=== PATIENT | male | born 1985 | race Two or more races ===

== ENCOUNTER 2023-12-07 14:04 | Inpatient (IN) | payer SELFPAY ==
[2023-12-07] VITALS (49 sets, daily range): BP systolic 123–200; BP diastolic 63–130; PULSE 58–119; TEMP 36.4–36.9; O2SAT 97–100; BMI 28.3; BMI 28.7
--- NOTE | 2023-12-07 14:14 | ECG_ITS ---
The [facility] Test Date: 2023-12-07 Pat Name: ERWIN HENDRIX Department: Room: - Gender: Male Mental Health Program Specialist: : 1985 Requested By: [id number] Order Number: [id number] Reading MD: PHOEBE MARIO Measurements Intervals [place] Rate: 59 P: -18 NE: 140 QRS: 83 QRSD: 88 T: 35 QT: 406 QTc: 406 Interpretive Statements 1100 Sinus rhythm 54608 Cannot rule out inferior myocardial infarction with posterior extension, age undetermined 9150 abnormal ECG No previous ECG available for comparison Electronically Signed On 12-07-2023 22:23:46 EDT by PHOEBE MARIO
--- NOTE | 2023-12-07 14:15 | CT_ITS ---
The [address] [address] Patient Name: ERWIN HENDRIX MRN: [id number] date: 1985 Sex: M Assigned Patient Location: ER Current Patient Location: ER Accession/Order Number: [id number] Exam Date: 12/07/2023 14:40 Report Date: 12/07/2023 15:11 At the request of: FRANDY THAPA Procedure: CT head/brain wo con HEAD CT WITHOUT CONTRAST: 12/07/2023 2:40 PM EDT Clinical Data: severe headache Comparison: No previous Unenhanced axial data from base to vertex. INTRA-AXIAL: No acute hemorrhage. No acute infarction is evident. EXTRA-AXIAL: No acute hemorrhage. No focal fluid collection. BRAIN VOLUME: Unremarkable for age. VENTRICLES: No hydrocephalus PARANASAL SINUSES: No air-fluid levels in the included aspects. MASTOIDS: Clear. CALVARIUM: No acute finding. EXTRACALVARIAL: No acute findings CT/CT head/brain wo con IMPRESSION: 1. No evidence of acute intracranial process on this unenhanced study as described. All CT scans at this facility use dose modulation, iterative reconstruction, and/or weight based dosing when appropriate to reduce radiation dose to as low as reasonably achievable. Electronically authenticated by: MIGUEL ANGEL LANE Date: 12/07/2023 15:11
--- NOTE | 2023-12-07 14:19 | ED_ITS ---
HPI HPI - General Adult General Chief complaint: Headache Stated complaint: NECK PAIN/ HEADACHE/ NAUSEA Time Seen by Provider: 12/07/23 14:14 Source: patient Mode of arrival: walk-in Limitations: no limitations History of Present Illness HPI narrative: The patient does not follow-up with any primary care and he have no previous medical history of any pathology as per his history, is coming to us with a headache that started this morning woke him up from sleep on the right side of the head associated with photosensitivity, he mentioned that he usually have a headache weekly he had no follow-up with anybody recently and no recent evaluation by any physician The patient also having nausea, he is denying any neck pain he is denying any chest pain He also denies any blurry vision or double vision Related Data Home Medications ?Medication ?Instructions ?Recorded ?Confirmed No Known Home Medications 12/07/23 12/07/23 Allergies Allergy/AdvReac Type Severity Reaction Status Date / Time No Known Drug Allergies Allergy Verified 12/07/23 14:09 Opioid HPI Opioid Management Most Recent Opioid Data: Last Pain Scale 4 12/07/23 15:41 12/07/23 Last ED Pain Assessment 12/07/23 15:41 Last MAR Pain Assessment 12/07/23 14:28 Review of Systems ROS Status of ROS 10 or more systems reviewed and unremark able except as noted in history and below PFSH PFSH Social History Little interest or pleasure in doing things: not at all Feeling down, depressed, or hopeless: not at all Exam Narrative Exam Narrative: Nurses notes and vital signs reviewed and patient is not hypoxic. General: Well-appearing and in no apparent distress. Skin: Warm, dry, no pallor noted. No rash. Head: Normocephalic, atraumatic. Neck: Supple, non-tender. Eye: Pupils are equal, round and EOMI. No scleral icterus. Ears, Nose, Mouth, and Throat: TM are clear, no nasal mucosal hypertrophy. Oral mucosa is moist, no posterior oropharynx erythema, uvula is mid-line Cardiovascular: Regular Rate and Rhythm without murmur, gallop or rub. Respiratory: No accessory muscle use or respiratory distress. Lungs are clear to auscultation, no wheezing, rales or rhonchi Chest Wall: no tenderness Back: No midline thoracic or lumbar vertebral tenderness. No CVA tenderness Musculoskeletal: normal ROM, no calf or popliteal tenderness, no lower extremity edema/swelling GI: Abdomen is soft, non-distended. Normal bowel sounds. No masses appreciated. No tenderness to palpation. No rebound, guarding, or rigidity noted. Neurological: A&O x4. No cranial nerve dysfunction observed. No truncal ataxia. Moves all extremities. Sensation intact. Psychiatric: Cooperative and interactive. Normal mood and affect. Constitutional Vital Signs, click to edit/add: Last Vital Signs Temp 98.4 F 12/07/23 14:09 Pulse 66 12/07/23 15:40 Resp 20 12/07/23 15:40 BP 185/102 H 12/07/23 15:40 Pulse Ox 100 12/07/23 15:40 O2 Del Method Room Air 12/07/23 15:40 Course Vital Signs Vital signs: Vital Signs Temperature 98.4 F 12/07/23 14:09 Pulse Rate 62 12/07/23 14:09 Respiratory Rate 18 12/07/23 14:09 Blood Pressure 200/120 H 12/07/23 14:09 Pulse Oximetry 100 12/07/23 14:09 Oxygen Delivery Method Room Air 12/07/23 14:09 Temperature 98.4 F 12/07/23 14:09 Pulse Rate 66 12/07/23 15:40 Respiratory Rate 20 12/07/23 15:40 Blood Pressure 185/102 H 12/07/23 15:40 Pulse Oximetry 100 12/07/23 15:40 Oxygen Delivery Method Room Air 12/07/23 15:40 Medical Decision Making [facility] Narrative Medical decision making narrative: The patient EKG showing sinus rhythm with a heart rate of 59 there is early representation but there is no ST elevation or depression significant for any acute coronary syndrome CT head showed no acute pathology Patient initially treated with Toradol Compazine and hydralazine to control his blood pressure The patient pain responded to medication in addition to his blood pressure responded to hydralazine Right now the patient chemistry showing elevated troponin of 118 the patient denies any chest pain at any time CT angio head and neck ordered----normal result The patient case was discussed with and he agreed to admit the patient for further evaluation Lab Data Labs: Lab Results 12/07/23 Range/Units 14:20 WBC 11.8 H (4.0-11.0) 10^3/uL RBC 5.21 (4.70-6.10) 10^6/uL Hgb 16.7 (14.0-18.0) g/dL Hct 48.8 (42.0-54.0) % MCV 93.7 (80.0-94.0) fL MCH 32.1 (25.9-34.0) pg MCHC 34.2 (29.9-35.2) g/dL RDW 13.0 (11.0-15.0) % Plt Count 361 (150-450) 10^3/uL MPV 8.5 L (9.5-13.5) fL Neut % (Auto) 67.7 (43.0-75.0) % Lymph % (Auto) 22.2 (20.5-60.0) % [place] % (Auto) 8.1 (1.7-12.0) % Eos % (Auto) 1.1 (0.9-7.0) % Baso % (Auto) 0.5 (0.2-2.0) % Neut # (Auto) 8.0 H (1.4-6.5) 10^3/uL Lymph # (Auto) 2.6 (1.2-3.8) 10^3/uL [place] # (Auto) 1.0 H (0.3-0.8) 10^3/uL Eos # (Auto) 0.1 (0.0-0.7) 10^3/uL Baso # (Auto) 0.1 (0.0-0.1) 10^3/uL Abs Immat Gran (auto) 0.05 H (0.00-0.03) 10^3/uL Imm/Tot Granulo (auto) 0.4 (0.0-0.5) % Sodium 141 (136-145) mmol/L Potassium 3.5 (3.5-5.1) mmol/L Chloride 104 (98-107) mmol/L Carbon Dioxide 26.0 (21.0-32.0) mmol/L Anion Gap 14.5 BUN 14.0 (7.0-18.0) mg/dL Creatinine 1.03 (0.70-1.30) mg/dL Est GFR ( Amer) >60 (>=60 mL/min/1.73m^2) Est GFR (Non-Af Amer) >60 (>=60 mL/min/1.73m^2) BUN/Creatinine Ratio 13.6 Glucose 97 (74-106) mg/dL Calcium 9.0 (8.5-10.1) mg/dL Total Bilirubin 0.5 (0.2-1.0) mg/dL AST 18 (15-37) U/L ALT 28 (16-63) U/L Alkaline Phosphatase 108 (46-116) U/L Troponin I High Sens 118.5 H* (4.0-76.1) pg/mL Total Protein 7.0 (6.4-8.2) g/dL Albumin 3.2 L (3.4-5.0) g/dL Globulin 3.8 g/dL Albumin/Globulin Ratio 0.8 Ethanol Quant <3 mg/dL Discharge Plan Discharge Chief Complaint: Headache Clinical Impression: Hypertensive emergency, Elevated troponin, Migraine Time of Disposition Decision: 15:37 Prescriptions / Home Meds: No Action No Known Home Medications Print Language: O[place]i Referrals: Physician,Non-Staff, MD [Primary Care Provider] - 1 week
[2023-12-07] MEDS: KETOROLAC TROMETHAMINE 30 MG/ML VIAL 15 MG IVP (14:28)
[2023-12-07 14:30] LABS: Basophils Absolute Auto 0.1 10^3/uL (0.0-0.1); Basophils Percent Auto 0.5 % (0.2-2.0); Eosinophils Absolute Auto 0.1 10^3/uL (0.0-0.7); Eosinophils Percent Auto 1.1 % (0.9-7.0); Hematocrit 48.8 % (42.0-54.0); Hemoglobin 16.7 g/dL (14.0-18.0); Immature Granulocytes Abs Auto 0.05 10^3/uL (0.00-0.03); Immature Granulocytes Pct Auto 0.4 % (0.0-0.5); Lymphocytes Absolute Auto 2.6 10^3/uL (1.2-3.8); Lymphocytes Percent Auto 22.2 % (20.5-60.0); Mean Corpuscular HGB Conc 34.2 g/dL (29.9-35.2); Mean Corpuscular Hemoglobin 32.1 pg (25.9-34.0); Mean Corpuscular Volume 93.7 fL (80.0-94.0); Mean Platelet Volume 8.5 fL (9.5-13.5); Monocytes Percent Auto 8.1 % (1.7-12.0); Neutrophils Percent Auto 67.7 % (43.0-75.0); Platelet Count 361 10^3/uL (150-450); Red Blood Count 5.21 10^6/uL (4.70-6.10); White Blood Count 11.8 10^3/uL (4.0-11.0)
[2023-12-07] MEDS: PROCHLORPERAZINE 10 MG/2 ML VIAL IV (14:30)
[2023-12-07] MEDS: HYDRALAZINE HCL 20 MG/ML VIAL 5 MG IVP (14:31)
[2023-12-07 14:47] LABS: Alanine Aminotransferase 28 U/L (16-63); Albumin Globulin Ratio 0.8; Albumin Level 3.2 g/dL (3.4-5.0); Alkaline Phosphatase 108 U/L (46-116); Anion Gap 14.5; Aspartate Amino Transferase 18 U/L (15-37); BUN Creatinine Ratio 13.6; Bilirubin Total 0.5 mg/dL (0.2-1.0); Chloride 104 mmol/L (98-107); Estimated GFR (African America >60 (>=60 mL/min/1.73m^2); Estimated GFR (Non-African Ame >60 (>=60 mL/min/1.73m^2); Globulin 3.8 g/dL; Glucose 97 mg/dL (74-106); Potassium 3.5 mmol/L (3.5-5.1); Sodium 141 mmol/L (136-145)
[2023-12-07 14:51] LABS: Ethanol <3 mg/dL; Troponin I High Sensitivity 118.5 pg/mL (4.0-76.1)
--- NOTE | 2023-12-07 14:52 | CT_ITS ---
The [address] [address] Patient Name: ERWIN HENDRIX MRN: [id number] date: 1985 Sex: M Assigned Patient Location: ER Current Patient Location: Accession/Order Number: [id number] Exam Date: 12/07/2023 15:00 Report Date: 12/07/2023 15:38 At the request of: FRANDY THAPA Procedure: CT angio head EXAM: CT angio head, CT angio neck HISTORY: headache with HTN emergency COMPARISON: Noncontrast CT head performed the same day and reported separately. TECHNIQUE: Postcontrast CTA imaging of the head and neck was performed with coronal and sagittal reformats. Maximum intensity projection and 3-D reformats were performed on a separate workstation. NASCET criteria was utilized. This CT exam was performed using one or more of the following dose reduction techniques: Automated exposure control, adjustment of the MA and/or kV according to patient size, or use of iterative reconstruction technique. FINDINGS: Aortic arch: Imaged portion shows no evidence of aneurysm. No significant stenosis of the major origins of the major arch vessels. Right carotid system: No evidence of significant (50% or greater) stenosis or occlusion. Left carotid system: No evidence of significant (50% or greater) stenosis or occlusion. Vertebral arteries: Codominant. No evidence of significant (50% or greater) stenosis or occlusion. Anterior circulation: No evidence of aneurysm, significant stenosis, or occlusion. Vertebrobasilar system: No evidence of aneurysm, significant stenosis, or occlusion. Venous sinuses: Grossly patent. Additional findings: Visualized portion of the lungs are clear. No abnormal intracranial enhancement. CT/CT angio head IMPRESSION: No significant stenosis, large vessel occlusion or aneurysm involving the neck or intracranial arterial vasculature. Electronically authenticated by: DEXTER LAO Date: 12/07/2023 15:38
--- NOTE | 2023-12-07 14:52 | CT_ITS ---
The [address] [address] Patient Name: ERWIN HENDRIX MRN: [id number] date: 1985 Sex: M Assigned Patient Location: ER Current Patient Location: Accession/Order Number: [id number] Exam Date: 12/07/2023 15:00 Report Date: 12/07/2023 15:38 At the request of: FRANDY THAPA Procedure: CT angio neck EXAM: CT angio head, CT angio neck HISTORY: headache with HTN emergency COMPARISON: Noncontrast CT head performed the same day and reported separately. TECHNIQUE: Postcontrast CTA imaging of the head and neck was performed with coronal and sagittal reformats. Maximum intensity projection and 3-D reformats were performed on a separate workstation. NASCET criteria was utilized. This CT exam was performed using one or more of the following dose reduction techniques: Automated exposure control, adjustment of the MA and/or kV according to patient size, or use of iterative reconstruction technique. FINDINGS: Aortic arch: Imaged portion shows no evidence of aneurysm. No significant stenosis of the major origins of the major arch vessels. Right carotid system: No evidence of significant (50% or greater) stenosis or occlusion. Left carotid system: No evidence of significant (50% or greater) stenosis or occlusion. Vertebral arteries: Codominant. No evidence of significant (50% or greater) stenosis or occlusion. Anterior circulation: No evidence of aneurysm, significant stenosis, or occlusion. Vertebrobasilar system: No evidence of aneurysm, significant stenosis, or occlusion. Venous sinuses: Grossly patent. Additional findings: Visualized portion of the lungs are clear. No abnormal intracranial enhancement. CT/CT angio neck IMPRESSION: No significant stenosis, large vessel occlusion or aneurysm involving the neck or intracranial arterial vasculature. Electronically authenticated by: DEXTER LAO Date: 12/07/2023 15:38
[2023-12-07 16:48] LABS: Troponin I High Sensitivity 120.4 pg/mL (4.0-76.1)
--- NOTE | 2023-12-07 17:42 | P.HP_ITS ---
HPI H&P: HPI History of Present Illness Chief complaint: Hypertension Emergency, Elevated Troponin Narrative: 38 y o male with no sig PMHX was in his usual state of health when he woke up early in the morning with severe right temporal PERRY. When his PERRY persisted and did not improve, he came to ED for further evaluation. Patient's BP was 200/120 upon arrival that improved a little with IV hydralazine. Besides PERRY, he did not have any other symptoms to offer. He denies prior hx of HTN but he also has not seen a physician for years. Patient denies CP, SOB, palpitations, weakness, numbness, changes in vision or any other neurological symptoms. His PERRY improved with IV toradol. Hospitalist team was consulted for admission for HTN emergency. Upon review of chart, it was noted that patient has mildly elevated troponin. But he denied any symptoms suggestive of ongoing cardiac ischemia. Patient denies prior hospital admission, has no hx of surgeries and is otherwise healthy and has no known medical problems. Opioid HPI Opioid Management Most Recent Pain and Opioid Data: Last Pain Scale 4 12/07/23 15:41 12/07/23 Last ED Pain Assessment 12/07/23 15:41 Last MAR Pain Assessment 12/07/23 14:28 Last ORT Total Score 0 12/07/23 17:06 12/07/23 Last ORT Risk Category Low Risk 12/07/23 17:06 12/07/23 Review of Systems ROS Status of ROS 10 or more systems reviewed and unremark able except as noted in history and below PFSH PFSH Family History (Updated 12/07/23 @ 17:11 by Lianet Adams RN) Mother Family history of hypertension Social History (Updated 12/07/23 @ 17:11 by Lianet Adams RN) Within the past year, how often did you have a drink containing alcohol: never Score interpretation: A score less than 4 is consistent with normal alcohol consumption. Smoking status: Never smoker Non-prescribed substance use: denies use Highest level of school completed/degree received: 3rd grade Little interest or pleasure in doing things: not at all Feeling down, depressed, or hopeless: not at all Meds Home Medications and Allergies Home Medications ?Medication ?Instructions ?Recorded ?Confirmed ?Type acetaminophen 325 mg tablet (Pain 650 mg PO Q6H PRN pain 12/07/23 12/07/23 History Relief (acetaminophen)) Allergies Allergy/AdvReac Type Severity Reaction Status Date / Time No Known Drug Allergies Allergy Verified 12/07/23 14:09 Exam Constitutional Vital Signs, click to edit/add: Last Vital Signs Temp 97.6 F 12/07/23 17:06 Pulse 62 12/07/23 17:06 Resp 18 12/07/23 17:06 BP 195/100 H 12/07/23 17:06 Pulse Ox 97 12/07/23 17:06 O2 Del Method Room Air 12/07/23 17:06 Documenting provider has reviewed patient's vital signs: yes Common normals: no apparent distress and oriented x3 General appearance: cooperative HENMT Common normals: normocephalic and head/scalp atraumatic Head and scalp: normocephalic and atraumatic Eye Common normals: conjunctivae normal and no scleral icterus Conjunctiva: conjunctiva(e) normal Respiratory Common normals: normal respiratory effort and clear to auscultation bilaterally Effort & inspection: able to speak in complete sentences Auscultation: clear to auscultation bilaterally Cardio Common normals: regular rate, S1 normal heart sound and S2 normal heart sound Rate: regular rate Heart sounds: S1 normal and S2 normal GI Common normals: Normal to inspection, nondistended, normoactive bowel sounds present, soft to palpation, non-tender and no hepatosplenomegaly Palpation: soft and no hepatosplenomegaly Extremity Common normals: no clubbing, cyanosis or edema Neuro Common normals: oriented x3, moves all extremities and no focal motor deficits Psych Common normals: mental status grossly normal, denies hallucinations, denies homicidal ideation and denies suicidal ideation Results Labs Labs: Short CBC 12/07/23 Range/Units 14:20 WBC 11.8 H (4.0-11.0) 10^3/uL Hgb 16.7 (14.0-18.0) g/dL Hct 48.8 (42.0-54.0) % Plt Count 361 (150-450) 10^3/uL BMP 12/07/23 14:20 Sodium 141 Potassium 3.5 Chloride 104 Carbon Dioxide 26.0 BUN 14.0 Creatinine 1.03 Glucose 97 Calcium 9.0 Liver Function 12/07/23 Range/Units 14:20 Total Bilirubin 0.5 (0.2-1.0) mg/dL AST 18 (15-37) U/L ALT 28 (16-63) U/L Alkaline Phosphatase 108 (46-116) U/L Albumin 3.2 L (3.4-5.0) g/dL Assessment and Plan Assessment and Plan (1) Sudden onset unilateral headache: Assessment and Plan: Resolved. No acute finding on CTH, CTA head and neck. Likely related to uncontrolled HTN. (2) Elevated troponin: Assessment and Plan: Likey T2 demand ischemia from accelerated HTN. No CP, SOB. Trend troponin. Started on low dose ASA. Check A1C, lipid panel for risk factors assesment. (3) Hypertensive emergency: Assessment and Plan: No known hx of HTN. Presented with BP > 200/120. Associated with headache and elevated troponin. Started on Losartan/HCTZ. IV hydralazine as needed. If remains poorly controlled persistently, will have to start on continuous IV for HTN. Gradually lower BP, goal BP is 170/100 for first 24 hours. Plan Admitted to step down. Patient needs close monitoring to ensure BP is gradually treated/lowered. Monitor on tele to ensure no sig cardiac arrhythmia develops with ischemic injury due to accelerated HTN. Neuro checks to ensure he does not develop any neurological symptoms
[2023-12-07] MEDS: LOSARTAN POTASSIUM 50 MG TABLET 100 MG PO (17:55)
[2023-12-07] MEDS: HYDROCHLOROTHIAZIDE 25 MG TABLET PO (17:55)
[2023-12-07 18:00] LABS: Amphetamine Screen Urine NEGATIVE (NEGATIVE); Barbiturates Screen Urine NEGATIVE (NEGATIVE); Benzodiazepines Screen Urine NEGATIVE (NEGATIVE); Buprenorphine Screen Urine NEGATIVE (NEGATIVE); Cannabinoid Screen Urine NEGATIVE (NEGATIVE); Cocaine Screen Urine NEGATIVE (NEGATIVE); Methadone Screen Urine NEGATIVE (NEGATIVE); Methamphetamines Screen Urine NEGATIVE (NEGATIVE); Opiate Screen Urine NEGATIVE (NEGATIVE); Oxycodone Screen Urine NEGATIVE (NEGATIVE); Phencyclidine Screen Urine NEGATIVE (NEGATIVE); Tricyclic Antidepressant Urine NEGATIVE (NEGATIVE)
[2023-12-07 18:52] LABS: Troponin I High Sensitivity 131.9 pg/mL (4.0-76.1)
[2023-12-07] MEDS: HYDRALAZINE HCL 20 MG/ML VIAL 10 MG IVP (18:58)
[2023-12-07] MEDS: ACETAMINOPHEN 325 MG TABLET 650 MG PO (19:19)
[2023-12-07] MEDS: ONDANSETRON PF 4 MG/2 ML VIAL IV (20:05)
--- NOTE | 2023-12-07 20:53 | PC.NURSE ---
Patient up to bathroom and vomiting at this time with noted increase in patients HR. Patient denies current needs.
[2023-12-07 21:47] LABS: Troponin I High Sensitivity 118.1 pg/mL (4.0-76.1)
[2023-12-07] MEDS: ASPIRIN 81 MG TAB.CHEW PO (22:53)
[2023-12-07] MEDS: ENOXAPARIN SODIUM 40 MG/0.4 ML SYRINGE SUBQ (22:53)
[2023-12-08] VITALS (9 sets, daily range): BP systolic 145; BP diastolic 96; PULSE 66–98; O2SAT 98
[2023-12-08] MEDS: ACETAMINOPHEN 325 MG TABLET 650 MG PO (04:51)
[2023-12-08 05:47] LABS: Basophils Absolute Auto 0.1 10^3/uL (0.0-0.1); Basophils Percent Auto 0.4 % (0.2-2.0); Eosinophils Absolute Auto 0.1 10^3/uL (0.0-0.7); Eosinophils Percent Auto 0.7 % (0.9-7.0); Hematocrit 49.4 % (42.0-54.0); Hemoglobin 16.9 g/dL (14.0-18.0); Immature Granulocytes Abs Auto 0.05 10^3/uL (0.00-0.03); Immature Granulocytes Pct Auto 0.4 % (0.0-0.5); Lymphocytes Absolute Auto 1.6 10^3/uL (1.2-3.8); Lymphocytes Percent Auto 13.8 % (20.5-60.0); Mean Corpuscular HGB Conc 34.2 g/dL (29.9-35.2); Mean Corpuscular Volume 93.6 fL (80.0-94.0); Mean Platelet Volume 8.7 fL (9.5-13.5); Monocytes Absolute Auto 0.7 10^3/uL (0.3-0.8); Monocytes Percent Auto 6.1 % (1.7-12.0); Neutrophils Absolute Auto 9.2 10^3/uL (1.4-6.5); Neutrophils Percent Auto 78.6 % (43.0-75.0); Platelet Count 371 10^3/uL (150-450); Red Blood Count 5.28 10^6/uL (4.70-6.10); Red Cell Distribution Width 13.2 % (11.0-15.0); White Blood Count 11.7 10^3/uL (4.0-11.0)
[2023-12-08 06:24] LABS: Cholesterol 259 mg/dL (<=200); Estimated Average Glucose 105 mg/dL; Glycohemoglobin A1C 5.3 % (4.5-6.2); HDL Cholesterol 52 mg/dL (40-60); Triglycerides 166 mg/dL (<=150); VLDL CHOLESTEROL 33.2 mg/dL
[2023-12-08 06:30] LABS: Alanine Aminotransferase 23 U/L (16-63); Albumin Globulin Ratio 0.8; Albumin Level 3.1 g/dL (3.4-5.0); Alkaline Phosphatase 102 U/L (46-116); Anion Gap 16.8; Aspartate Amino Transferase 17 U/L (15-37); BUN Creatinine Ratio 10.9; Bilirubin Total 0.5 mg/dL (0.2-1.0); Carbon Dioxide 22.4 mmol/L (21.0-32.0); Chloride 104 mmol/L (98-107); Estimated GFR (African America >60 (>=60 mL/min/1.73m^2); Estimated GFR (Non-African Ame >60 (>=60 mL/min/1.73m^2); Globulin 3.8 g/dL; Glucose 117 mg/dL (74-106); Potassium 3.2 mmol/L (3.5-5.1); Sodium 140 mmol/L (136-145); Total Protein 6.9 g/dL (6.4-8.2)
[2023-12-08] MEDS: HYDROCHLOROTHIAZIDE 25 MG TABLET PO (08:45)
[2023-12-08] MEDS: POTASSIUM CHLORIDE 10 MEQ ER TABLET 40 MEQ PO (08:45)
--- NOTE | 2023-12-08 09:32 | PM.DS1 ---
DS: Providers Provider Date of admission: 12/07/23 17:00 Primary care physician: Non-Staff PhysicianMD Admitting clinician: Shaikh Gabriel Attending physician on admission: Shaikh Gabriel Attending physician on discharge: Shaikh Gabriel Discharging clinician: Shaikh Gabriel Anticipated date of discharge: 12/08/23 DS: Diagnosis Discharge Diagnosis (1) Sudden onset unilateral headache: (2) Elevated troponin: (3) Hypertensive emergency: DS: Summary Hospital Course Hospital Course: 38 y o male with no sig PMHX was in his usual state of health when he woke up early in the morning with severe right temporal PERRY. Upon arrival, patient's BP was 200/120 that improved a little with IV hydralazine. Besides PERRY, he did not have any other symptoms to offer. Patient denied CP, SOB, palpitations, weakness, numbness, changes in vision or any other neurological symptoms. His PERRY improved with IV toradol. CTH - no acute finding. Patient was admitted to step down for HTN emergency. He was started on Oral Losartan/HCTZ with IV hydralazine as needed. Patient's blood work revealed elevated troponin that trended down. He never complained of any symptoms suggestive of active cardiac ischemia. No acute finding on EKG. No abnormal events on tele. His A1C was normal but lipid panel revealed elevated LDL, cholesterol and he was started on lipitor. Patient's blood improved during the course of admission and remained at goal. He was admitted as inpatient and was expected to require > 2 days of inpatient monitoring/treatment but recovered/improved sooner than anticipated and is medically stable for discharge. Patient does not have a PCP. We will arrange for an appointment with a PCP so that he can follow up with PCP as outpatient for HTN/HLD and routine care. Status at Discharge Functional status at discharge: independent ambulation Overall status at discharge: patient is back to baseline Time Spent with Patient Time attestation: Total time spent providing and/or coordinating discharge services: Time spent: greater than 30 minutes Exam Constitutional Vital Signs, click to edit/add: Last Vital Signs Temp 98.2 F 12/07/23 22:56 Pulse 66 12/08/23 08:00 Resp 14 12/08/23 04:30 BP 145/96 H 12/08/23 08:36 Pulse Ox 98 12/08/23 08:36 O2 Del Method Room Air 12/08/23 09:00 Documenting provider has reviewed patient's vital signs: yes Common normals: no apparent distress and oriented x3 General appearance: cooperative Respiratory Common normals: normal respiratory effort and clear to auscultation bilaterally Effort & inspection: able to speak in complete sentences Auscultation: clear to auscultation bilaterally Cardio Common normals: regular rate, S1 normal heart sound and S2 normal heart sound Rate: regular rate Heart sounds: S1 normal and S2 normal Extremity Common normals: no clubbing, cyanosis or edema Neuro Common normals: oriented x3, moves all extremities and no focal motor deficits Psych Common normals: mental status grossly normal, denies hallucinations, denies homicidal ideation and denies suicidal ideation DS: Data Data Completed and Pending Labs on day of discharge: Labs from last 24 hours 12/08/23 12/07/23 12/07/23 05:11 21:10 18:09 WBC 11.7 H RBC 5.28 Hgb 16.9 Hct 49.4 MCV 93.6 MCH 32.0 MCHC 34.2 RDW 13.2 Plt Count 371 MPV 8.7 L Neut % (Auto) 78.6 H Lymph % (Auto) 13.8 L [place] % (Auto) 6.1 Eos % (Auto) 0.7 L Baso % (Auto) 0.4 Neut # (Auto) 9.2 H Lymph # (Auto) 1.6 [place] # (Auto) 0.7 Eos # (Auto) 0.1 Baso # (Auto) 0.1 Abs Immat Gran (auto) 0.05 H Imm/Tot Granulo (auto) 0.4 Sodium 140 Potassium 3.2 L Chloride 104 Carbon Dioxide 22.4 Anion Gap 16.8 BUN 14.0 Creatinine 1.28 Est GFR ( Amer) >60 Est GFR (Non-Af Amer) >60 BUN/Creatinine Ratio 10.9 Glucose 117 H Estimat Average Glucose 105 Hemoglobin A1c 5.3 Calcium 9.0 Total Bilirubin 0.5 AST 17 ALT 23 Alkaline Phosphatase 102 Troponin I High Sens 118.1 H* 131.9 H* Total Protein 6.9 Albumin 3.1 L Globulin 3.8 Albumin/Globulin Ratio 0.8 Triglycerides 166 H Cholesterol 259 H LDL Cholesterol, Calc 174.0 VLDL Cholesterol 33.2 HDL Cholesterol 52 Cholesterol/HDL Ratio 5.0 Urine Opiates Screen Ur Buprenorphine Scrn Ur Oxycodone Screen Urine Methadone Screen Ur Barbiturates Screen U Tricyclic Antidepress Ur Phencyclidine Scrn Ur Amphetamines Screen U Methamphetamines Scrn U Benzodiazepines Scrn Urine Cocaine Screen U Cannabinoids Screen Ethanol Quant 12/07/23 12/07/23 12/07/23 16:59 15:57 14:20 WBC 11.8 H RBC 5.21 Hgb 16.7 Hct 48.8 MCV 93.7 MCH 32.1 MCHC 34.2 RDW 13.0 Plt Count 361 MPV 8.5 L Neut % (Auto) 67.7 Lymph % (Auto) 22.2 [place] % (Auto) 8.1 Eos % (Auto) 1.1 Baso % (Auto) 0.5 Neut # (Auto) 8.0 H Lymph # (Auto) 2.6 [place] # (Auto) 1.0 H Eos # (Auto) 0.1 Baso # (Auto) 0.1 Abs Immat Gran (auto) 0.05 H Imm/Tot Granulo (auto) 0.4 Sodium 141 Potassium 3.5 Chloride 104 Carbon Dioxide 26.0 Anion Gap 14.5 BUN 14.0 Creatinine 1.03 Est GFR ( Amer) >60 Est GFR (Non-Af Amer) >60 BUN/Creatinine Ratio 13.6 Glucose 97 Estimat Average Glucose Hemoglobin A1c Calcium 9.0 Total Bilirubin 0.5 AST 18 ALT 28 Alkaline Phosphatase 108 Troponin I High Sens 120.4 H* 118.5 H* Total Protein 7.0 Albumin 3.2 L Globulin 3.8 Albumin/Globulin Ratio 0.8 Triglycerides Cholesterol LDL Cholesterol, Calc VLDL Cholesterol HDL Cholesterol Cholesterol/HDL Ratio Urine Opiates Screen Negative Ur Buprenorphine Scrn Negative Ur Oxycodone Screen Negative Urine Methadone Screen Negative Ur Barbiturates Screen Negative U Tricyclic Antidepress Negative Ur Phencyclidine Scrn Negative Ur Amphetamines Screen Negative U Methamphetamines Scrn Negative U Benzodiazepines Scrn Negative Urine Cocaine Screen Negative U Cannabinoids Screen Negative Ethanol Quant <3 Discharge Plan Discharge Disposition: Home, Self-Care Discharge Medications: New losartan-hydrochlorothiazide 100-25 mg tablet 1 tab PO DAILY Qty: 30 0RF atorvastatin [Lipitor] 40 mg tablet 40 mg PO DAILY Qty: 30 0RF Continued acetaminophen [Pain Relief (acetaminophen)] 325 mg tablet 650 mg PO Q6H PRN (Reason: pain) Activity: increase activity as tolerated Diet: advance to your usual diet Print Language: Citizen Of [place] Forms: Portal Instructions Follow Up Appointments: F/u with PCP in one week
--- NOTE | 2023-12-08 09:52 | CM.NOTE ---
Rounds made with Dr. Rios, pt will discharge to home today. Pt is self-pay. Dr[facility]. Pt does not have PCP, will attempt to set pt up with [facility] in [place] for f/u appt.
--- NOTE | 2023-12-08 10:05 | SWNOTE1 ---
SW called [facility] pharmacy to check on cost of medications. One med was $24 and the other was $22. SW went online with [employer] card and they were about $5 cheaper each. SW provided pt with the cost and a [employer] card. Pt did get set up with [facility] for f/u apt.
[2023-12-08] MEDS: FLU VAC QS 2024(6MS UP)CEL/PF 60 MCG/0.5 ML SYRINGE IM (10:35)
--- NOTE | 2023-12-08 10:49 | PC.NURSE ---
discharge instructions given to pt, verbalized understanding. ambulated to exit with belongings. discharged to private vehicle.
--- NOTE | 2023-12-09 11:22 | CM.DCFOLLOWU ---
Person spoke with: patient How are you feeling?well How is your pain?none Did you understand your discharge instructions?yes Do you have any questions about your discharge instructions?no Were you given any prescriptions at discharge?yes Were you able to get your prescriptions filled?yes Do you understand how to take your medications as ordered?yes Do you have any questions about your follow up appointment and do you plan to keep your follow up appointment?no questions, reviewed follow up Is there anything else that you would like to discuss? no Questions/Comments/Concerns/Other:none
== END 2023-12-08 10:45 | disposition home or self-care (01) | DRG 305 ==
LOC: ER 15:47 → MS 17:04 → ICU 17:33
PROVIDERS: Admitting Provider Internal Medicine; Emergency Provider Emergency Medicine; Visit Provider Internal Medicine
DX: I16.1 Hypertensive emergency (principal); R51.9 Headache, unspecified; R79.89 Other specified abnormal findings of blood chemistry
CPT/HCPCS: 36415; 70450; 70496; 70498; 80053; 80061; 80307; 80320; 83036; 84484; 85025; 90674; 93005; 94761; 96374; 96375; 99285; J0360; J0780; J1650; J1885; J2405; Q9967